=== PATIENT | male | born 1945 | race Caucasian/White ===

== ENCOUNTER 2017-02-10 15:25 | Inpatient (IN) ==
[2017-02-10] MEDS ORDERED: ALBUTEROL/IPRATROPIUM 3 ML NEB RESP TX STA (17:26)
[2017-02-10] MEDS ORDERED: ONDANSETRON 4 MG/2 ML VIAL IV STA (18:10)
[2017-02-10] MEDS ORDERED: cefTRIAXone 1,000 MG in SODIUM CHLORIDE 0.9% 100 ML IV STA (18:10)
[2017-02-10] MEDS ORDERED: AZITHROMYCIN INJ 500 MG in SODIUM CHLORIDE 0.9% 250 ML IV STA (18:10)
[2017-02-10] MEDS ORDERED: methylPREDNISolone SOD SUC 125 MG/2 ML VIAL IV STA (18:10)
[2017-02-10] MEDS ORDERED: MAGNESIUM SULF RIDER 2 GM in PREMIX 1 EACH IV STA (18:10)
[2017-02-10] MEDS ORDERED: KETOROLAC 30 MG/1 ML VIAL IV STA (18:10)
[2017-02-10 18:21] LABS: Basophils % 0.3 % (0.0-0.8); Hematocrit 41.8 VOL% (42.0-52.0); Hemoglobin 13.5 GM/DL (14.0-18.0); Immature Granulocytes % 0.4 %; Immature Granulocytes Absolute 0.06 #; Lymphocytes # 0.4 10*3/uL (1.4-4.0); Mean Corpuscular HGB Conc 32.3 GM/DL (32-36); Mean Corpuscular Hemoglobin 29 PG (27-34); Mean Corpuscular Volume 88.7 FL (87-102); Mean Platelet Volume 10.6 FL (9.6-12.0); Monocytes # 1.6 10*3/uL (0.11-0.8); Monocytes % 10.8 % (1.7-12.7); Neutrophils # 12.3 10*3/uL (1.4-7.4); Neutrophils % 85.5 % (38.7-73.9); Platelet Count 179 T/CUMM (130-400); Red Blood Count 4.71 MC/CUMM (3.8-5.5); Red Cell Distribution Width 13.7 % (9.3-17.3); White Blood Count 14.4 T/CUMM (4-12)
[2017-02-10] MEDS ORDERED: ALBUTEROL NEB SOLN 5 MG/ML 20 ML/BOTTLE RESP TX SCH (18:30)
[2017-02-10] MEDS ORDERED: methylPREDNISolone SOD SUC 125 MG/2 ML VIAL ONE (18:33)
[2017-02-10] MEDS ORDERED: KETOROLAC 30 MG/1 ML VIAL ONE (18:33)
[2017-02-10] MEDS ORDERED: ONDANSETRON 4 MG/2 ML VIAL ONE (18:33)
[2017-02-10 18:42] LABS: PT Patient Result 10.8 SECS; Partial Thromboplastin Time 27.1 SECS (0-40)
[2017-02-10 18:45] LABS: Albumin 3.7 G/DL (3.4-5.0); Bilirubin,Total 0.8 MG/DL (0.2-1.0); Calcium 8.4 MG/DL (8.5-10.1); Osmolality,Calculated 280.5 MOS/KG (273-304); Potassium 4.2 MMOL/L (3.5-5.1); Total Protein 7.6 G/DL (6.4-8.3)
[2017-02-10 18:48] LABS: Band Neutrophils 3 % (0-10); Lymphocytes 9 % (20-55); Platelet Estimate Normal; Segmented Neutrophils 81 % (50-85); Total Cells Counted 100
[2017-02-10 18:59] LABS: Troponin I Only 0.056 NG/ML (0.00-0.045)
[2017-02-10] MEDS ORDERED: MAGNESIUM SULF RIDER 50 ML IV ONE (19:14)
[2017-02-10] MEDS ORDERED: AZITHROMYCIN 500 MG VIAL IV ONE (19:14)
[2017-02-10] MEDS ORDERED: cefTRIAXone 1,000 MG VIAL ONE (19:14)
[2017-02-10] MEDS ORDERED: NITROGLYCERIN 2% OINT 1 INCH/GM PACK TOP STA (19:17)
[2017-02-10] MEDS ORDERED: ASPIRIN 325 MG TABLET PO STA (19:17)
[2017-02-10] MEDS ORDERED: SODIUM CHLORIDE 0.9% 3,000 ML IV ONE (19:49)
[2017-02-10] MEDS ORDERED: ONDANSETRON 4 MG/2 ML VIAL IV PRN (19:51)
[2017-02-10] MEDS ORDERED: ZALEPLON 5 MG CAPSULE PO PRN (19:51)
[2017-02-10] MEDS ORDERED: ACETAMINOPHEN 325 MG TABLET PO PRN (19:51)
[2017-02-10 19:57] LABS: Apearance,Urine Slightly Hazy (Clear); Bilirubin,Urine Negative (Negative); Blood, Urine Moderate mg/dL (Negative); Glucose,Urine (UA) Negative (Negative); Ketones,Urine Negative (Negative); Mucus,Urine Occasional /LPF (Occasional); Nitrite,Urine Negative (Negative); Protein,Urine 30 MG/DL; RBC,Urine 31 /HPF (0-4); Squamous Epithelial Cell,Urine Occasional /HPF (0-10); Urine Color Yellow (Yellow); Urine Urobilinogen < 2.0 EU/DL (0.2-1.0); WBC,Urine 2 /HPF (0-6)
[2017-02-10] MEDS ORDERED: ASPIRIN 325 MG TABLET ONE (20:15)
[2017-02-10] MEDS ORDERED: NITROGLYCERIN 2% OINT 1 INCH/GM PACK TOP ONE (20:17)
[2017-02-10 20:54] LABS: ABG Base Excess -5.2 MMOL/L (-2.5-2.5); ABG HCO3 20.5 MMOL/L (20-26); ABG Oxygen Saturation 95.6 % (95-100); ABG PCO2 40.6 MM HG (35-48); ABG PH 7.322 (7.35-7.45); ABG TCO2 21.8 MMOL/L (23-27); Allen Test Positive
[2017-02-10 22:13] LABS: Lactic Acid 5.7 MMOL/L (0.4-2.0)
[2017-02-10] MEDS: ENOXAPARIN 40 MG/0.4 ML SYRINGE SUBCUT SCH (22:20)
[2017-02-10] MEDS: OSELTAMIVIR 75 MG CAPSULE PO SCH (22:20)
[2017-02-10] MEDS: ALBUTEROL/IPRATROPIUM 3 ML NEB RESP TX SCH (23:18)
[2017-02-11 01:12] LABS: Basophils % 0.1 % (0.0-0.8); Hematocrit 37.4 VOL% (42.0-52.0); Hemoglobin 11.7 GM/DL (14.0-18.0); Immature Granulocytes % 0.9 %; Immature Granulocytes Absolute 0.12 #; Lymphocytes # 0.4 10*3/uL (1.4-4.0); Lymphocytes % 2.8 % (21.2-54.2); Mean Corpuscular HGB Conc 31.3 GM/DL (32-36); Mean Corpuscular Hemoglobin 28 PG (27-34); Mean Corpuscular Volume 90.6 FL (87-102); Mean Platelet Volume 10.5 FL (9.6-12.0); Monocytes # 0.6 10*3/uL (0.11-0.8); Monocytes % 4.8 % (1.7-12.7); Neutrophils # 12.1 10*3/uL (1.4-7.4); Neutrophils % 91.4 % (38.7-73.9); Platelet Count 167 T/CUMM (130-400); Red Blood Count 4.13 MC/CUMM (3.8-5.5); Red Cell Distribution Width 13.9 % (9.3-17.3); White Blood Count 13.2 T/CUMM (4-12)
[2017-02-11 01:33] LABS: Calcium 7.5 MG/DL (8.5-10.1); Osmolality,Calculated 294.4 MOS/KG (273-304)
[2017-02-11] MEDS: SODIUM CHLORIDE 0.9% 1,000 ML IV SCH ×3 (01:50→15:01)
[2017-02-11] MEDS: methylPREDNISolone SOD SUC 40 MG/1 ML VIAL IV SCH ×3 (02:30→17:23)
[2017-02-11] MEDS: ALBUTEROL/IPRATROPIUM 3 ML NEB RESP TX SCH ×5 (02:45→19:57)
[2017-02-11 03:47] LABS: Band Neutrophils 2 % (0-10); Lymphocytes 3 % (20-55); Platelet Estimate Normal; Segmented Neutrophils 94 % (50-85); Total Cells Counted 100
[2017-02-11] MEDS: OSELTAMIVIR 75 MG CAPSULE PO SCH ×2 (09:23→21:52)
[2017-02-11] MEDS: PANTOPRAZOLE 40 MG TABLET PO SCH (09:23)
[2017-02-11] MEDS: cefTRIAXone 1,000 MG in SYRINGE 1 EACH IV SCH (17:26)
[2017-02-11] MEDS: ENOXAPARIN 40 MG/0.4 ML SYRINGE SUBCUT SCH (21:52)
[2017-02-11] MEDS: AZITHROMYCIN INJ 500 MG in SODIUM CHLORIDE 0.9% 250 ML IV SCH (23:23)
[2017-02-12] MEDS: ALBUTEROL/IPRATROPIUM 3 ML NEB RESP TX SCH ×7 (00:33→23:34)
[2017-02-12] MEDS: methylPREDNISolone SOD SUC 40 MG/1 ML VIAL IV SCH (04:27)
[2017-02-12 06:19] LABS: Basophils % 0.1 % (0.0-0.8); Hematocrit 36.9 VOL% (42.0-52.0); Hemoglobin 11.8 GM/DL (14.0-18.0); Immature Granulocytes Absolute 0.18 #; Lymphocytes # 0.6 10*3/uL (1.4-4.0); Lymphocytes % 3.5 % (21.2-54.2); Mean Corpuscular Hemoglobin 28 PG (27-34); Mean Corpuscular Volume 88.3 FL (87-102); Mean Platelet Volume 10.9 FL (9.6-12.0); Monocytes % 5.7 % (1.7-12.7); Neutrophils # 15.6 10*3/uL (1.4-7.4); Neutrophils % 89.7 % (38.7-73.9); Platelet Count 177 T/CUMM (130-400); Red Blood Count 4.18 MC/CUMM (3.8-5.5); White Blood Count 17.4 T/CUMM (4-12)
[2017-02-12 06:56] LABS: Calcium 7.9 MG/DL (8.5-10.1); Osmolality,Calculated 297.7 MOS/KG (273-304); Potassium 4.1 MMOL/L (3.5-5.1)
[2017-02-12 08:00] LABS: Hypochromasia Slight; Lymphocytes 4 % (20-55); Platelet Estimate Adequate; Segmented Neutrophils 91 % (50-85); Total Cells Counted 100
[2017-02-12] MEDS: PANTOPRAZOLE 40 MG TABLET PO SCH ×2 (08:07→21:44)
[2017-02-12] MEDS: OSELTAMIVIR 75 MG CAPSULE PO SCH ×2 (08:07→21:44)
[2017-02-12] MEDS ORDERED: predniSONE 20 MG TABLET PO ONE (10:50)
[2017-02-12] MEDS: cefTRIAXone 1,000 MG in SYRINGE 1 EACH IV SCH (17:12)
[2017-02-12] MEDS: ATORVASTATIN 40 MG TABLET PO SCH (21:44)
[2017-02-12] MEDS: ENOXAPARIN 40 MG/0.4 ML SYRINGE SUBCUT SCH (21:45)
[2017-02-12] MEDS: AZITHROMYCIN INJ 500 MG in SODIUM CHLORIDE 0.9% 250 ML IV SCH (23:02)
[2017-02-13] MEDS: ALBUTEROL/IPRATROPIUM 3 ML NEB RESP TX SCH ×5 (03:44→19:37)
[2017-02-13 06:15] LABS: Basophils % 0.1 % (0.0-0.8); Hematocrit 38.4 VOL% (42.0-52.0); Immature Granulocytes % 0.5 %; Immature Granulocytes Absolute 0.07 #; Lymphocytes # 1.6 10*3/uL (1.4-4.0); Lymphocytes % 10.9 % (21.2-54.2); Mean Corpuscular HGB Conc 31.3 GM/DL (32-36); Mean Corpuscular Hemoglobin 28 PG (27-34); Mean Corpuscular Volume 90.1 FL (87-102); Mean Platelet Volume 10.9 FL (9.6-12.0); Monocytes # 0.9 10*3/uL (0.11-0.8); Monocytes % 6.3 % (1.7-12.7); Neutrophils # 11.7 10*3/uL (1.4-7.4); Neutrophils % 82.2 % (38.7-73.9); Platelet Count 186 T/CUMM (130-400); Red Blood Count 4.26 MC/CUMM (3.8-5.5); Red Cell Distribution Width 14.2 % (9.3-17.3); White Blood Count 14.2 T/CUMM (4-12)
[2017-02-13 06:45] LABS: Calcium 8.1 MG/DL (8.5-10.1); Potassium 4.1 MMOL/L (3.5-5.1)
[2017-02-13] MEDS: ASPIRIN EC 81 MG TABLET PO SCH (08:09)
[2017-02-13] MEDS: FERROUS SULFATE 325 MG TABLET PO SCH (08:09)
[2017-02-13] MEDS: TOLTERODINE LA 4 MG CAPSULE PO SCH (08:10)
[2017-02-13] MEDS: OSELTAMIVIR 75 MG CAPSULE PO SCH ×2 (08:10→21:20)
[2017-02-13] MEDS: PANTOPRAZOLE 40 MG TABLET PO SCH ×3 (08:10→21:20)
[2017-02-13] MEDS ORDERED: LISINOPRIL/HCTZ 20-12.5 MG TABLET PO SCH (09:00)
[2017-02-13] MEDS: LISINOPRIL/HCTZ 20-12.5 MG TABLET PO SCH (13:12)
[2017-02-13] MEDS: cefTRIAXone 1,000 MG in SYRINGE 1 EACH IV SCH (17:11)
[2017-02-13] MEDS: ATORVASTATIN 40 MG TABLET PO SCH (21:20)
[2017-02-13] MEDS: ENOXAPARIN 40 MG/0.4 ML SYRINGE SUBCUT SCH (21:20)
[2017-02-13] MEDS: BUDESONIDE/FORMOTEROL 160-4.5 INHALER 6 GM INH SCH (21:22)
[2017-02-13] MEDS: AZITHROMYCIN INJ 500 MG in SODIUM CHLORIDE 0.9% 250 ML IV SCH (23:34)
[2017-02-14] MEDS: ALBUTEROL/IPRATROPIUM 3 ML NEB RESP TX SCH ×7 (00:06→23:28)
[2017-02-14 06:10] LABS: Basophils % 0.1 % (0.0-0.8); Eosinophils % 0.2 % (0.00-10.9); Hematocrit 42.2 VOL% (42.0-52.0); Hemoglobin 13.7 GM/DL (14.0-18.0); Immature Granulocytes % 0.6 %; Immature Granulocytes Absolute 0.05 #; Lymphocytes # 2.3 10*3/uL (1.4-4.0); Mean Corpuscular HGB Conc 32.5 GM/DL (32-36); Mean Corpuscular Hemoglobin 28 PG (27-34); Mean Platelet Volume 10.8 FL (9.6-12.0); Monocytes # 0.9 10*3/uL (0.11-0.8); Monocytes % 10.2 % (1.7-12.7); Neutrophils # 5.6 10*3/uL (1.4-7.4); Neutrophils % 62.9 % (38.7-73.9); Platelet Count 205 T/CUMM (130-400); Red Blood Count 4.85 MC/CUMM (3.8-5.5); Red Cell Distribution Width 13.8 % (9.3-17.3); White Blood Count 8.9 T/CUMM (4-12)
[2017-02-14] MEDS: BUDESONIDE/FORMOTEROL 160-4.5 INHALER 6 GM INH SCH ×2 (10:00→21:51)
[2017-02-14] MEDS: FERROUS SULFATE 325 MG TABLET PO SCH (10:01)
[2017-02-14] MEDS: OSELTAMIVIR 75 MG CAPSULE PO SCH (10:01)
[2017-02-14] MEDS: LISINOPRIL/HCTZ 20-12.5 MG TABLET PO SCH (10:01)
[2017-02-14] MEDS: ASPIRIN EC 81 MG TABLET PO SCH (10:01)
[2017-02-14] MEDS: PANTOPRAZOLE 40 MG TABLET PO SCH ×3 (10:02→21:50)
[2017-02-14] MEDS: TOLTERODINE LA 4 MG CAPSULE PO SCH (10:02)
[2017-02-14] MEDS: predniSONE 20 MG TABLET PO SCH (17:16)
[2017-02-14] MEDS: cefTRIAXone 1,000 MG in SYRINGE 1 EACH IV SCH (18:38)
[2017-02-14] MEDS: ATORVASTATIN 40 MG TABLET PO SCH (21:50)
[2017-02-14] MEDS: ENOXAPARIN 40 MG/0.4 ML SYRINGE SUBCUT SCH (21:50)
[2017-02-14] MEDS: AZITHROMYCIN INJ 500 MG in SODIUM CHLORIDE 0.9% 250 ML IV SCH (23:59)
[2017-02-15] MEDS: ALBUTEROL/IPRATROPIUM 3 ML NEB RESP TX SCH ×3 (02:47→11:41)
[2017-02-15] MEDS: TOLTERODINE LA 4 MG CAPSULE PO SCH (10:20)
[2017-02-15] MEDS: ASPIRIN EC 81 MG TABLET PO SCH (10:21)
[2017-02-15] MEDS: predniSONE 20 MG TABLET PO SCH (10:21)
[2017-02-15] MEDS: FERROUS SULFATE 325 MG TABLET PO SCH (10:21)
[2017-02-15] MEDS: PANTOPRAZOLE 40 MG TABLET PO SCH ×2 (10:21→10:23)
[2017-02-15] MEDS: LISINOPRIL/HCTZ 20-12.5 MG TABLET PO SCH (10:22)
[2017-02-15] MEDS: BUDESONIDE/FORMOTEROL 160-4.5 INHALER 6 GM INH SCH (10:23)
[2017-02-15 11:36] VITALS: BP 135/78
== END 2017-02-15 14:16 | disposition home or self-care (01) | DRG 872 ==
LOC: N.ED 15:25 → N.EDINP 19:44 → SUATTDRO 19:44 → N.CC 20:17 → N.3E 02-11 18:25
PROVIDERS: ADMIT Internal Medicine Nephrology; ATTEND Internal Medicine

== ENCOUNTER 2018-04-12 14:01 | Inpatient (IN) ==
[2018-04-12] MEDS ORDERED: ONDANSETRON 4 MG/2 ML VIAL IV STA (14:36)
[2018-04-12] MEDS ORDERED: cefTRIAXone 1,000 MG in SODIUM CHLORIDE 0.9% 100 ML IV STA (14:36)
[2018-04-12] MEDS ORDERED: methylPREDNISolone SOD SUC 125 MG/2 ML VIAL IV STA (14:36)
[2018-04-12] MEDS ORDERED: FUROSEMIDE 100 MG/10 ML VIAL IV STA (14:36)
[2018-04-12] MEDS ORDERED: FUROSEMIDE 20 MG/2 ML VIAL ONE (14:54)
[2018-04-12] MEDS ORDERED: FUROSEMIDE 40 MG/4 ML VIAL ONE (14:54)
[2018-04-12 15:00] LABS: INR 0.9; PT Patient Result 10.2 SECS
[2018-04-12] MEDS ORDERED: ALBUTEROL 2.5 MG/3 ML NEB RESP TX SCH (15:00)
[2018-04-12 15:12] LABS: Basophils # 0.1 10*3/uL (0.0-0.2); Basophils % 0.6 % (0.0-0.8); Eosinophils # 0.1 10*3/uL (0.0-0.87); Hematocrit 34.7 VOL% (42.0-52.0); Hemoglobin 10.1 GM/DL (14.0-18.0); Immature Granulocytes % 0.3 %; Immature Granulocytes Absolute 0.03 #; Lymphocytes # 2.5 10*3/uL (1.4-4.0); Lymphocytes % 26.5 % (21.2-54.2); Mean Corpuscular HGB Conc 29.1 GM/DL (32-36); Mean Corpuscular Hemoglobin 22 PG (27-34); Mean Corpuscular Volume 75.8 FL (87-102); Mean Platelet Volume 9.9 FL (9.6-12.0); Monocytes # 0.8 10*3/uL (0.11-0.8); Monocytes % 8.7 % (1.7-12.7); Neutrophils % 62.9 % (38.7-73.9); Platelet Count 418 T/CUMM (130-400); Red Blood Count 4.58 MC/CUMM (3.8-5.5); Red Cell Distribution Width 15.9 % (9.3-17.3); White Blood Count 9.6 T/CUMM (4-12)
[2018-04-12 15:13] LABS: Anisocytosis 1+; Elliptocytes Few; Macrocytosis 1+; Platelet Estimate Normal; Poikilocytosis Few
[2018-04-12 15:14] LABS: Albumin 3.4 G/DL (3.4-5.0); Bilirubin,Total 0.5 MG/DL (0.2-1.0); Calcium 8.6 MG/DL (8.5-10.1); Osmolality,Calculated 272.7 MOS/KG (273-304); Polychromasia Slight; Potassium 4.1 MMOL/L (3.5-5.1)
[2018-04-12] MEDS ORDERED: ONDANSETRON 4 MG/2 ML VIAL IV PRN (16:28)
[2018-04-12] MEDS ORDERED: ALBUTEROL 2.5 MG/3 ML NEB RESP TX PRN (16:33)
[2018-04-12] MEDS: LEVOFLOXACIN INJ 750 MG in PREMIX 1 EACH IV SCH (18:45)
[2018-04-12] MEDS: ALBUTEROL/IPRATROPIUM 3 ML NEB RESP TX SCH (19:05)
[2018-04-12] MEDS ORDERED: methylPREDNISolone SOD SUC 40 MG/1 ML VIAL IV SCH (23:00)
[2018-04-13] MEDS: ALBUTEROL/IPRATROPIUM 3 ML NEB RESP TX SCH ×4 (03:28→20:47)
[2018-04-13 05:33] LABS: Calcium 9.1 MG/DL (8.5-10.1); Osmolality,Calculated 270.2 MOS/KG (273-304); Potassium 4.5 MMOL/L (3.5-5.1)
[2018-04-13 06:01] LABS: Basophils % 0.1 % (0.0-0.8); Immature Granulocytes % 0.5 %; Immature Granulocytes Absolute 0.04 #; Lymphocytes # 0.7 10*3/uL (1.4-4.0); Lymphocytes % 8.4 % (21.2-54.2); Mean Corpuscular HGB Conc 29.1 GM/DL (32-36); Mean Corpuscular Hemoglobin 22 PG (27-34); Mean Corpuscular Volume 74.6 FL (87-102); Mean Platelet Volume 9.9 FL (9.6-12.0); Monocytes # 0.3 10*3/uL (0.11-0.8); Monocytes % 3.4 % (1.7-12.7); Neutrophils % 87.6 % (38.7-73.9); Platelet Count 426 T/CUMM (130-400); Red Blood Count 4.69 MC/CUMM (3.8-5.5); Red Cell Distribution Width 15.7 % (9.3-17.3)
[2018-04-13 06:02] LABS: Hemoglobin 10.2 GM/DL (14.0-18.0)
[2018-04-13] MEDS: PANTOPRAZOLE 40 MG TABLET PO SCH (09:31)
[2018-04-13] MEDS: LOSARTAN/HCTZ 50-12.5 MG TABLET PO SCH (09:31)
[2018-04-13] MEDS ORDERED: ASPIRIN EC 81 MG TABLET PO SCH (12:00)
[2018-04-13] MEDS: LEVOFLOXACIN INJ 750 MG in PREMIX 1 EACH IV SCH (17:21)
[2018-04-13] MEDS: ASPIRIN EC 81 MG TABLET PO SCH (21:02)
[2018-04-13] MEDS: ATORVASTATIN 40 MG TABLET PO SCH (21:02)
[2018-04-14] MEDS: ALBUTEROL/IPRATROPIUM 3 ML NEB RESP TX SCH ×4 (01:43→19:25)
[2018-04-14] MEDS: ASPIRIN EC 81 MG TABLET PO SCH (09:19)
[2018-04-14] MEDS: PANTOPRAZOLE 40 MG TABLET PO SCH (09:19)
[2018-04-14] MEDS: LOSARTAN/HCTZ 50-12.5 MG TABLET PO SCH (09:19)
[2018-04-14] MEDS: methylPREDNISolone SOD SUC 40 MG/1 ML VIAL IV SCH ×2 (16:06→21:23)
[2018-04-14] MEDS: SODIUM CHLORIDE 0.9% 1,000 ML IV SCH (16:06)
[2018-04-14] MEDS: LEVOFLOXACIN INJ 750 MG in PREMIX 1 EACH IV SCH (17:59)
[2018-04-14] MEDS: ATORVASTATIN 40 MG TABLET PO SCH (21:23)
[2018-04-15] MEDS: ALBUTEROL/IPRATROPIUM 3 ML NEB RESP TX SCH ×4 (01:15→20:00)
[2018-04-15 04:33] LABS: Basophils % 0.1 % (0.0-0.8); Hematocrit 32.7 VOL% (42.0-52.0); Hemoglobin 9.7 GM/DL (14.0-18.0); Immature Granulocytes % 0.5 %; Immature Granulocytes Absolute 0.05 #; Lymphocytes # 0.7 10*3/uL (1.4-4.0); Lymphocytes % 6.9 % (21.2-54.2); Mean Corpuscular HGB Conc 29.7 GM/DL (32-36); Mean Corpuscular Hemoglobin 22 PG (27-34); Mean Corpuscular Volume 73.5 FL (87-102); Mean Platelet Volume 9.8 FL (9.6-12.0); Monocytes # 0.3 10*3/uL (0.11-0.8); Monocytes % 2.6 % (1.7-12.7); Neutrophils # 8.9 10*3/uL (1.4-7.4); Neutrophils % 89.9 % (38.7-73.9); Platelet Count 407 T/CUMM (130-400); Red Blood Count 4.45 MC/CUMM (3.8-5.5); Red Cell Distribution Width 15.7 % (9.3-17.3); White Blood Count 9.9 T/CUMM (4-12)
[2018-04-15 04:34] LABS: Osmolality,Calculated 279.1 MOS/KG (273-304); Potassium 4.3 MMOL/L (3.5-5.1)
[2018-04-15] MEDS: methylPREDNISolone SOD SUC 40 MG/1 ML VIAL IV SCH ×3 (06:13→21:03)
[2018-04-15] MEDS: SODIUM CHLORIDE 0.9% 1,000 ML IV SCH (06:16)
[2018-04-15] MEDS: PANTOPRAZOLE 40 MG TABLET PO SCH (10:31)
[2018-04-15] MEDS: LOSARTAN/HCTZ 50-12.5 MG TABLET PO SCH (10:32)
[2018-04-15] MEDS: ASPIRIN EC 81 MG TABLET PO SCH (10:32)
[2018-04-15] MEDS: DOCUSATE SODIUM 100 MG CAPSULE PO PRN ×2 (12:38→21:01)
[2018-04-15] MEDS: LEVOFLOXACIN INJ 750 MG in PREMIX 1 EACH IV SCH (17:54)
[2018-04-15] MEDS: OMEPRAZOLE 20 MG PO SCH (21:02)
[2018-04-15] MEDS: ATORVASTATIN 40 MG TABLET PO SCH (21:02)
[2018-04-16] MEDS: ALBUTEROL/IPRATROPIUM 3 ML NEB RESP TX SCH ×4 (01:30→19:20)
[2018-04-16] MEDS: methylPREDNISolone SOD SUC 40 MG/1 ML VIAL IV SCH ×3 (05:56→21:00)
[2018-04-16] MEDS: LOSARTAN/HCTZ 50-12.5 MG TABLET PO SCH (09:53)
[2018-04-16] MEDS: DOCUSATE SODIUM 100 MG CAPSULE PO PRN ×2 (09:53→20:53)
[2018-04-16] MEDS: ASPIRIN EC 81 MG TABLET PO SCH (09:53)
[2018-04-16] MEDS: OMEPRAZOLE 20 MG PO SCH ×2 (09:54→20:52)
[2018-04-16] MEDS: LEVOFLOXACIN INJ 750 MG in PREMIX 1 EACH IV SCH (17:47)
[2018-04-16] MEDS: ATORVASTATIN 40 MG TABLET PO SCH (20:53)
[2018-04-16] MEDS ORDERED: MAGNESIUM HYDROXIDE SUSP 30 ML UDCUP PO PRN (21:00)
[2018-04-17] MEDS: ALBUTEROL/IPRATROPIUM 3 ML NEB RESP TX SCH ×2 (00:23→07:18)
[2018-04-17] MEDS: methylPREDNISolone SOD SUC 40 MG/1 ML VIAL IV SCH (05:35)
[2018-04-17] MEDS ORDERED: PROMETHAZINE 25 MG/1 ML VIAL IM ONE (07:00)
[2018-04-17] MEDS ORDERED: GLYCOPYRROLATE 0.4 MG/2 ML VIAL IM ONE (07:00)
[2018-04-17] MEDS ORDERED: MEPERIDINE 50 MG/1 ML VIAL IM ONE (07:00)
[2018-04-17] MEDS ORDERED: MIDAZOLAM 2 MG/2 ML VIAL ONE (07:03)
[2018-04-17] MEDS ORDERED: LIDOCAINE 2% 20 ML VIAL RESP TX ONE (07:30)
[2018-04-17] MEDS ORDERED: LIDOCAINE 2% VISCOUS 100 ML BOTTLE SWISH/SPIT ONE (07:30)
[2018-04-17] MEDS ORDERED: LIDOCAINE 1% 20 ML VIAL MISC INJ ONE (07:30)
[2018-04-17] MEDS ORDERED: MIDAZOLAM 2 MG/2 ML VIAL IV ONE (07:30)
[2018-04-17 08:35] VITALS: BP 127/74
[2018-04-17] MEDS: LOSARTAN/HCTZ 50-12.5 MG TABLET PO SCH (10:03)
[2018-04-17] MEDS: ASPIRIN EC 81 MG TABLET PO SCH (10:03)
[2018-04-17] MEDS: OMEPRAZOLE 20 MG PO SCH (10:03)
== END 2018-04-17 11:40 | disposition home or self-care (01) | DRG 206 ==
LOC: N.EDINP 14:01 → N.ED 14:01 → N.EDINP 18:07 → N.4E 18:25
PROVIDERS: ADMIT Internal Medicine; ATTEND Internal Medicine

== ENCOUNTER 2021-05-19 16:57 | Inpatient (IN) ==
[2021-05-19] MEDS ORDERED: ONDANSETRON 4 MG/2 ML VIAL IV STA (18:40)
[2021-05-19] MEDS ORDERED: ALBUTEROL/IPRATROPIUM 3 ML NEB RESP TX STA (18:40)
[2021-05-19] MEDS ORDERED: FUROSEMIDE 40 MG/4 ML VIAL IV STA (18:40)
[2021-05-19] MEDS ORDERED: PIPERACILLIN/TAZOBACTAM 3,375 MG in SODIUM CHLORIDE 0.9% 100 ML IV STA (18:40)
[2021-05-19] MEDS ORDERED: methylPREDNISolone SOD SUC 125 MG/2 ML VIAL IV STA (18:40)
[2021-05-19 18:50] LABS: Basophils % 0.5 % (0.0-0.8); Eosinophils # 0.2 10*3/uL (0.0-0.87); Eosinophils % 1.7 % (0.00-10.9); Hematocrit 39.7 VOL% (42.0-52.0); Immature Granulocytes % 0.3 %; Immature Granulocytes Absolute 0.03 #; Lymphocytes # 1.4 10*3/uL (1.4-4.0); Lymphocytes % 15.8 % (21.2-54.2); Mean Corpuscular HGB Conc 30.2 GM/DL (32-36); Mean Corpuscular Volume 88.6 FL (87-102); Mean Platelet Volume 10.4 FL (9.6-12.0); Monocytes # 0.9 10*3/uL (0.11-0.8); Monocytes % 9.7 % (1.7-12.7); Platelet Count 233 T/CUMM (130-400); Red Blood Count 4.48 MC/CUMM (3.8-5.5); Red Cell Distribution Width 14.4 % (9.3-17.3); White Blood Count 8.8 T/CUMM (4-12)
[2021-05-19 18:55] LABS: PT Patient Result 10.9 SECS (10.5-12.0)
[2021-05-19] MEDS ORDERED: ALBUTEROL NEB SOLN 5 MG/ML 20 ML/BOTTLE CONT NEB SCH (19:00)
[2021-05-19 19:07] LABS: Albumin 3.4 G/DL (3.4-5.0); Bilirubin,Total 0.4 MG/DL (0.20-1.00); Calcium 9.1 MG/DL (8.5-10.1); Osmolality,Calculated 280.3 MOS/KG (273-304); Potassium 3.9 MMOL/L (3.5-5.1); Total Protein 6.9 G/DL (6.4-8.2)
[2021-05-19 20:29] LABS: Arterial Base Excess iSTAT 7 MMOL/L (-2.5-2.5); Arterial Bicarbonate iSTAT 34.6 MMOL/L (20-26); Arterial O2 Saturation iSTAT 92 % (95-100); Arterial PCO2 iSTAT 62 MM HG (35-48); Arterial PO2 iSTAT 69 MM HG (80-95); Arterial Total CO2 iSTAT 36 MMO/L (23-27); Arterial pH iSTAT 7.354 (7.35-7.45)
[2021-05-19] MEDS ORDERED: GLUCAGON 1 MG VIAL IM PRN (20:48)
[2021-05-19] MEDS ORDERED: DEXTROSE 10% 250 ML BAG IV PRN (20:48)
[2021-05-19] MEDS ORDERED: ACETAMINOPHEN 325 MG TABLET PO PRN (20:48)
[2021-05-19] MEDS ORDERED: ONDANSETRON 4 MG/2 ML VIAL IV PRN (20:48)
[2021-05-19] MEDS ORDERED: hydrALAZINE 20 MG/1 ML VIAL IV PRN (20:48)
[2021-05-20] MEDS: ALBUTEROL/IPRATROPIUM 3 ML NEB RESP TX SCH ×4 (00:05→19:57)
[2021-05-20] MEDS: INSULIN LISPRO 100 UNIT/ML SUBCUT SCH ×5 (01:29→20:00)
[2021-05-20] MEDS: AZITHROMYCIN INJ 500 MG in SODIUM CHLORIDE 0.9% 250 ML IV SCH (01:44)
[2021-05-20] MEDS ORDERED: PIPERACILLIN/TAZOBACTAM 3,375 MG in SODIUM CHLORIDE 0.9% 100 ML IV SCH (04:00)
[2021-05-20] MEDS ORDERED: methylPREDNISolone SOD SUC 125 MG/2 ML VIAL IV SCH (06:00)
[2021-05-20 06:05] LABS: Calcium 8.7 MG/DL (8.5-10.1); Osmolality,Calculated 291.4 MOS/KG (273-304); Potassium 4.6 MMOL/L (3.5-5.1); Thyroid Stimulating Hormone 0.314 uIU/ml (0.358-3.74)
[2021-05-20 07:42] LABS: Arterial Base Excess iSTAT 7 MMOL/L (-2.5-2.5); Arterial Bicarbonate iSTAT 32.2 MMOL/L (20-26); Arterial O2 Saturation iSTAT 98 % (95-100); Arterial PCO2 iSTAT 49 MM HG (35-48); Arterial PO2 iSTAT 99 MM HG (80-95); Arterial Total CO2 iSTAT 34 MMO/L (23-27); Arterial pH iSTAT 7.424 (7.35-7.45)
[2021-05-20] MEDS: PANTOPRAZOLE 40 MG TABLET PO SCH (09:21)
[2021-05-20] MEDS: ENOXAPARIN 40 MG/0.4 ML SYRINGE SUBCUT SCH (09:21)
[2021-05-20 10:51] LABS: Basophils % 0.3 % (0.0-0.8); Hematocrit 39.1 VOL% (42.0-52.0); Hemoglobin 12.1 GM/DL (14.0-18.0); Immature Granulocytes % 0.6 %; Immature Granulocytes Absolute 0.04 #; Lymphocytes # 0.5 10*3/uL (1.4-4.0); Mean Corpuscular HGB Conc 30.9 GM/DL (32-36); Mean Corpuscular Volume 87.7 FL (87-102); Monocytes # 0.2 10*3/uL (0.11-0.8); Monocytes % 2.7 % (1.7-12.7); Neutrophils % 88.4 % (38.7-73.9); Platelet Count 231 T/CUMM (130-400); Red Blood Count 4.46 MC/CUMM (3.8-5.5); Red Cell Distribution Width 14.6 % (9.3-17.3); White Blood Count 6.7 T/CUMM (4-12)
[2021-05-20] MEDS: cefTRIAXone 1,000 MG in SODIUM CHLORIDE 0.9% 100 ML IV SCH (11:59)
[2021-05-20] MEDS: methylPREDNISolone SOD SUC 125 MG/2 ML VIAL IV SCH (16:38)
[2021-05-20] MEDS: DEXTROMETHORPHAN ER 6 MG/ML 90 ML/BOTTLE PO PRN (17:35)
[2021-05-21] MEDS: methylPREDNISolone SOD SUC 125 MG/2 ML VIAL IV SCH ×3 (00:17→16:29)
[2021-05-21] MEDS: AZITHROMYCIN INJ 500 MG in SODIUM CHLORIDE 0.9% 250 ML IV SCH (00:18)
[2021-05-21] MEDS: ALBUTEROL/IPRATROPIUM 3 ML NEB RESP TX SCH ×4 (00:53→19:28)
[2021-05-21] MEDS: PANTOPRAZOLE 40 MG TABLET PO SCH ×2 (08:36→20:45)
[2021-05-21] MEDS: ENOXAPARIN 40 MG/0.4 ML SYRINGE SUBCUT SCH (08:37)
[2021-05-21] MEDS: INSULIN LISPRO 100 UNIT/ML SUBCUT SCH ×4 (08:38→22:51)
[2021-05-21] MEDS: DEXTROMETHORPHAN ER 6 MG/ML 90 ML/BOTTLE PO PRN ×2 (08:39→22:47)
[2021-05-21] MEDS: CHOLECALCIFEROL 1,000 UNIT TABLET PO SCH (10:21)
[2021-05-21] MEDS: lisinopriL 20 MG TABLET PO SCH (10:21)
[2021-05-21] MEDS: ASPIRIN EC 81 MG TABLET PO SCH (10:21)
[2021-05-21] MEDS: FERROUS SULFATE 325 MG TABLET PO SCH (10:22)
[2021-05-21] MEDS: metFORMIN 500 MG TABLET PO SCH ×2 (10:22→20:45)
[2021-05-21] MEDS: TAMSULOSIN 0.4 MG CAPSULE PO SCH (10:22)
[2021-05-21] MEDS: BUDESONIDE/FORMOTEROL 160-4.5 INHALER 6 GM INH SCH ×3 (10:25→22:51)
[2021-05-21] MEDS: cefTRIAXone 1,000 MG in SODIUM CHLORIDE 0.9% 100 ML IV SCH (10:33)
[2021-05-21] MEDS: ATORVASTATIN 20 MG TABLET PO SCH (20:45)
[2021-05-22] MEDS: ALBUTEROL/IPRATROPIUM 3 ML NEB RESP TX SCH ×7 (00:24→23:30)
[2021-05-22] MEDS: AZITHROMYCIN INJ 500 MG in SODIUM CHLORIDE 0.9% 250 ML IV SCH (01:12)
[2021-05-22] MEDS: methylPREDNISolone SOD SUC 125 MG/2 ML VIAL IV SCH (01:12)
[2021-05-22] MEDS: INSULIN LISPRO 100 UNIT/ML SUBCUT SCH ×4 (08:52→20:49)
[2021-05-22] MEDS: methylPREDNISolone SOD SUC 40 MG/1 ML VIAL IV SCH ×2 (08:56→17:55)
[2021-05-22] MEDS: FERROUS SULFATE 325 MG TABLET PO SCH (08:56)
[2021-05-22] MEDS: CHOLECALCIFEROL 1,000 UNIT TABLET PO SCH (08:56)
[2021-05-22] MEDS: PANTOPRAZOLE 40 MG TABLET PO SCH ×2 (08:57→20:49)
[2021-05-22] MEDS: TAMSULOSIN 0.4 MG CAPSULE PO SCH (08:57)
[2021-05-22] MEDS: ASPIRIN EC 81 MG TABLET PO SCH (08:57)
[2021-05-22] MEDS: metFORMIN 500 MG TABLET PO SCH ×2 (08:57→20:48)
[2021-05-22] MEDS: lisinopriL 20 MG TABLET PO SCH (08:57)
[2021-05-22] MEDS: ENOXAPARIN 40 MG/0.4 ML SYRINGE SUBCUT SCH (08:58)
[2021-05-22] MEDS: BUDESONIDE/FORMOTEROL 160-4.5 INHALER 6 GM INH SCH ×2 (09:32→20:51)
[2021-05-22] MEDS: ATORVASTATIN 20 MG TABLET PO SCH (20:49)
[2021-05-23] MEDS: methylPREDNISolone SOD SUC 40 MG/1 ML VIAL IV SCH ×3 (01:22→18:28)
[2021-05-23] MEDS: ALBUTEROL/IPRATROPIUM 3 ML NEB RESP TX SCH ×5 (02:00→19:30)
[2021-05-23] MEDS: FERROUS SULFATE 325 MG TABLET PO SCH (08:59)
[2021-05-23] MEDS: metFORMIN 500 MG TABLET PO SCH ×2 (09:00→21:44)
[2021-05-23] MEDS: CHOLECALCIFEROL 1,000 UNIT TABLET PO SCH (09:00)
[2021-05-23] MEDS: ASPIRIN EC 81 MG TABLET PO SCH (09:01)
[2021-05-23] MEDS: lisinopriL 20 MG TABLET PO SCH (09:01)
[2021-05-23] MEDS: TAMSULOSIN 0.4 MG CAPSULE PO SCH (09:01)
[2021-05-23] MEDS: PANTOPRAZOLE 40 MG TABLET PO SCH ×2 (09:02→21:44)
[2021-05-23] MEDS: INSULIN LISPRO 100 UNIT/ML SUBCUT SCH ×4 (09:04→21:43)
[2021-05-23] MEDS: BUDESONIDE/FORMOTEROL 160-4.5 INHALER 6 GM INH SCH ×2 (09:04→21:48)
[2021-05-23] MEDS: cefTRIAXone 1,000 MG in SODIUM CHLORIDE 0.9% 100 ML IV SCH (09:05)
[2021-05-23] MEDS: ENOXAPARIN 40 MG/0.4 ML SYRINGE SUBCUT SCH (09:05)
[2021-05-23] MEDS: ATORVASTATIN 20 MG TABLET PO SCH (21:47)
[2021-05-24] MEDS: methylPREDNISolone SOD SUC 40 MG/1 ML VIAL IV SCH ×3 (00:54→16:52)
[2021-05-24] MEDS: ALBUTEROL/IPRATROPIUM 3 ML NEB RESP TX SCH ×6 (03:20→23:00)
[2021-05-24 06:00] LABS: Potassium 4.6 MMOL/L (3.5-5.1)
[2021-05-24 06:11] LABS: Osmolality,Calculated 279.8 MOS/KG (273-304)
[2021-05-24] MEDS: INSULIN LISPRO 100 UNIT/ML SUBCUT SCH ×5 (08:16→21:53)
[2021-05-24] MEDS: cefTRIAXone 1,000 MG in SODIUM CHLORIDE 0.9% 100 ML IV SCH (09:47)
[2021-05-24] MEDS: ENOXAPARIN 40 MG/0.4 ML SYRINGE SUBCUT SCH (09:48)
[2021-05-24] MEDS: TAMSULOSIN 0.4 MG CAPSULE PO SCH (09:52)
[2021-05-24] MEDS: CHOLECALCIFEROL 1,000 UNIT TABLET PO SCH (09:52)
[2021-05-24] MEDS: ASPIRIN EC 81 MG TABLET PO SCH (09:52)
[2021-05-24] MEDS: metFORMIN 500 MG TABLET PO SCH ×2 (09:52→21:53)
[2021-05-24] MEDS: BUDESONIDE/FORMOTEROL 160-4.5 INHALER 6 GM INH SCH ×2 (09:52→22:01)
[2021-05-24] MEDS: lisinopriL 20 MG TABLET PO SCH (09:52)
[2021-05-24] MEDS: FERROUS SULFATE 325 MG TABLET PO SCH (09:52)
[2021-05-24] MEDS: PANTOPRAZOLE 40 MG TABLET PO SCH ×2 (09:53→21:53)
[2021-05-24] MEDS: ATORVASTATIN 20 MG TABLET PO SCH (21:53)
[2021-05-24] MEDS: POLYETHYLENE GLYCOL POWDER 17 GM PACK PO PRN (21:59)
[2021-05-25] MEDS: methylPREDNISolone SOD SUC 40 MG/1 ML VIAL IV SCH ×3 (01:24→20:47)
[2021-05-25] MEDS: ALBUTEROL/IPRATROPIUM 3 ML NEB RESP TX SCH ×6 (02:14→22:50)
[2021-05-25 07:04] LABS: Calcium 8.4 MG/DL (8.5-10.1); Osmolality,Calculated 283.7 MOS/KG (273-304); Potassium 4.3 MMOL/L (3.5-5.1)
[2021-05-25] MEDS: cefTRIAXone 1,000 MG in SODIUM CHLORIDE 0.9% 100 ML IV SCH (09:27)
[2021-05-25] MEDS: POLYETHYLENE GLYCOL POWDER 17 GM PACK PO PRN (09:27)
[2021-05-25] MEDS: metFORMIN 500 MG TABLET PO SCH ×2 (09:28→20:47)
[2021-05-25] MEDS: CHOLECALCIFEROL 1,000 UNIT TABLET PO SCH (09:28)
[2021-05-25] MEDS: TAMSULOSIN 0.4 MG CAPSULE PO SCH (09:28)
[2021-05-25] MEDS: PANTOPRAZOLE 40 MG TABLET PO SCH ×2 (09:28→20:48)
[2021-05-25] MEDS: lisinopriL 20 MG TABLET PO SCH (09:28)
[2021-05-25] MEDS: FERROUS SULFATE 325 MG TABLET PO SCH (09:28)
[2021-05-25] MEDS: INSULIN LISPRO 100 UNIT/ML SUBCUT SCH ×4 (09:29→20:48)
[2021-05-25] MEDS: ASPIRIN EC 81 MG TABLET PO SCH (09:29)
[2021-05-25] MEDS: ENOXAPARIN 40 MG/0.4 ML SYRINGE SUBCUT SCH (09:29)
[2021-05-25] MEDS: BUDESONIDE/FORMOTEROL 160-4.5 INHALER 6 GM INH SCH ×2 (09:30→20:47)
[2021-05-25] MEDS: ATORVASTATIN 20 MG TABLET PO SCH (20:48)
[2021-05-25] MEDS: DEXTROMETHORPHAN ER 6 MG/ML 90 ML/BOTTLE PO PRN (20:48)
[2021-05-26] MEDS: ALBUTEROL/IPRATROPIUM 3 ML NEB RESP TX SCH ×4 (02:26→15:35)
[2021-05-26] MEDS: cefTRIAXone 1,000 MG in SODIUM CHLORIDE 0.9% 100 ML IV SCH (09:13)
[2021-05-26] MEDS: INSULIN LISPRO 100 UNIT/ML SUBCUT SCH ×3 (09:13→15:51)
[2021-05-26] MEDS: ASPIRIN EC 81 MG TABLET PO SCH (09:14)
[2021-05-26] MEDS: lisinopriL 20 MG TABLET PO SCH (09:14)
[2021-05-26] MEDS: metFORMIN 500 MG TABLET PO SCH (09:14)
[2021-05-26] MEDS: FERROUS SULFATE 325 MG TABLET PO SCH (09:14)
[2021-05-26] MEDS: ENOXAPARIN 40 MG/0.4 ML SYRINGE SUBCUT SCH (09:14)
[2021-05-26] MEDS: TAMSULOSIN 0.4 MG CAPSULE PO SCH (09:14)
[2021-05-26] MEDS: PANTOPRAZOLE 40 MG TABLET PO SCH (09:15)
[2021-05-26] MEDS: CHOLECALCIFEROL 1,000 UNIT TABLET PO SCH (09:15)
[2021-05-26] MEDS: methylPREDNISolone SOD SUC 40 MG/1 ML VIAL IV SCH (10:40)
[2021-05-26] MEDS: BUDESONIDE/FORMOTEROL 160-4.5 INHALER 6 GM INH SCH (10:41)
[2021-05-26 16:57] VITALS: BP 122/63
[2021-05-26 22:31] LABS: CDT Result Negative (Negative); CDT Specimen Source STOOL
[2021-06-07] MEDS ORDERED: CYANOCOBALAMIN 1000 MCG/1 ML VIAL IM SCH (09:00)
== END 2021-05-26 17:22 | disposition home or self-care (01) | DRG 190 ==
LOC: N.ED 16:57 → SUATTDRO 20:48 → N.5E 20:48
PROVIDERS: ADMIT Internal Medicine Geriatric Medicine; ATTEND Internal Medicine